=== PATIENT | female | born 1995 | race Asian ===

== ENCOUNTER 2022-08-10 15:27 | Emergency (ER) | payer MEDICAID ==
[~2022-08-10] VITALS: Ht 160 cm; Wt 63.0 kg
[2022-08-10 16:13] LABS: URINE HCG NEGATIVE (NEG)
[2022-08-10 16:22] LABS: CLARITY,URINE CLOUDY (Clear); COLOR,URINE YELLOW (Yellow); GLUCOSE, URINE NEGATIVE (Neg); KETONES,URINE NEGATIVE (Neg); LEUKOCYTE ESTERASE ,URINE NEGATIVE (Neg); NITRITES, URINE NEGATIVE (Neg); OCCULT BLOOD,URINE MODERATE (Neg); PROTEIN,URINE NEGATIVE (Neg); UA COLLECTION TYPE CLN CATCH MIDSTREAM; UROBILINOGEN,URINE 0.2 E.U/dL (0.2-1.0)
[2022-08-10 16:22] LABS: BASOPHILS % (AUTO) 0.6 % (0-1); EOSINOPHILS # (AUTO) 0.1 X10'3 (0-0.9); EOSINOPHILS % (AUTO) 1.6 % (0-6); HEMATOCRIT 39.4 % (35.0-45.0); HEMOGLOBIN 13.1 g/dl (12.0-16.0); LYMPHOCYTES # (AUTO) 2.2 X10'3 (1.1-4.8); MEAN CORPUSCULAR HEMOGLOBIN 29.9 PG (27.0-31.0); MEAN CORPUSCULAR HGB CONC 33.2 g/dL (33.0-36.5); MEAN CORPUSCULAR VOLUME 89.9 FL (78-98); MEAN PLATELET VOLUME 9.4 FL (7.4-10.4); MONOCYTES # (AUTO) 0.5 X10'3 (0-0.9); NEUTROPHILS # (AUTO) 4.8 X10'3 (1.8-7.7); NEUTROPHILS % (AUTO) 62.8 % (42-75); PLATELET COUNT 208 X10'3 (140-440); RED BLOOD COUNT 4.38 X10'6 (4.20-5.60); RED CELL DISTRIBUTION WIDTH 14.2 % (11.5-14.5); WHITE BLOOD COUNT 7.7 X10'3 (4.5-11.0)
[2022-08-10 16:35] LABS: ALANINE AMINOTRANSFERASE 30 U/L (12-78); ALBUMIN 3.9 G/DL (3.4-5.0); ALBUMIN/GLOBULIN RATIO 1.1 (1.1-1.5); ALKALINE PHOSPHATASE 112 IU/L (46-116); ANION GAP 11 (8-16); ASPARTATE AMINO TRANSFERASE 33 U/L (10-37); BILIRUBIN,TOTAL 0.3 MG/DL (0.1-1.0); BLOOD UREA NITROGEN 14 MG/DL (7-18); BUN/CREATININE RATIO 18.2 (10.0-20.0); CALCIUM 9.3 MG/DL (8.5-10.1); CHLORIDE 104 MMOL/L (99-107); CREATININE 0.77 MG/DL (0.40-0.90); GLUCOSE 101 MG/DL (70-104); LIPASE 164 U/L (73-393); POTASSIUM 4.1 MMOL/L (3.5-5.1); SODIUM 140 MMOL/L (135-145); TOTAL CARBON DIOXIDE 24.7 MMOL/L (24-32); TOTAL PROTEIN 7.6 G/DL (6.4-8.2); eGFR > 90 ML/MIN
[2022-08-10 16:35] LABS: BACTERIA,URINE 2+ /HPF (Neg); SQUAMOUS EPITHELIAL CELL,UR MANY /LPF (FEW); TRANSITIONAL EPI CELLS,URINE FEW /HPF
[2022-08-10] MEDS ORDERED: cefuroxime axetil 250mg tablet PO SCH (17:30)
[2022-08-10] MEDS ORDERED: cefuroxime axetil 250mg tablet PO ONE (17:30)
[2022-08-10] MEDS ORDERED: CEFU500T66 PO (17:39)
[2022-08-10 18:03] VITALS: BP 123/83
== END 2022-08-10 18:05 | disposition home or self-care (01) ==
LOC: ER 15:28
DX: N39.0 Urinary tract infection, site not specified (principal); Z79.899 Other long term (current) drug therapy
CPT/HCPCS: 36415; 80053; 81001; 81025; 83690; 85025; 87088; 99283

== ENCOUNTER 2022-08-21 12:30 | Emergency (ER) | payer MEDICAID ==
[~2022-08-21] VITALS: Ht 160 cm; Wt 60.0 kg
[~2022-08-21 12:30] MED LIST: CEFU500T66 PO
[2022-08-21 12:32] VITALS: BP 93/64
--- NOTE | 2022-08-21 14:14 | NUR ---
Lab reports they dont have urine on her. Gave pt water to get another sample.
[2022-08-21 14:57] LABS: CLARITY,URINE CLEAR (Clear); COLOR,URINE YELLOW (Yellow); GLUCOSE, URINE NEGATIVE (Neg); KETONES,URINE NEGATIVE (Neg); LEUKOCYTE ESTERASE ,URINE NEGATIVE (Neg); NITRITES, URINE NEGATIVE (Neg); OCCULT BLOOD,URINE SMALL (Neg); PROTEIN,URINE NEGATIVE (Neg); UROBILINOGEN,URINE 0.2 E.U/dL (0.2-1.0)
[2022-08-21 14:58] LABS: URINE HCG NEGATIVE (NEG)
[2022-08-21 15:13] LABS: UA COLLECTION TYPE CLN CATCH MIDSTREAM
[2022-08-21 15:15] LABS: RBC,URINE 0-2 /HPF (0-2); WBC,URINE 0-4 /HPF (0-4)
[2022-08-21 15:16] LABS: MUCUS STRANDS NONE SEEN /LPF (Neg); SQUAMOUS EPITHELIAL CELL,UR FEW /LPF (FEW)
[2022-08-21 15:17] LABS: BACTERIA,URINE FEW /HPF (Neg)
--- NOTE | 2022-08-21 15:43 | NUR ---
PT WITH ULTRASOUND NOW.
[2022-08-21] MEDS ORDERED: ketorolac trometh. 30mg/ml inj. IM ONE (15:55)
[2022-08-21] MEDS ORDERED: CELE-193 PO (16:13)
== END 2022-08-21 16:50 | disposition home or self-care (01) ==
LOC: ER 12:32
DX: M54.50 Low back pain, unspecified (principal); R11.0 Nausea
CPT/HCPCS: 76770; 81001; 81025; 96372; 99285; J1885

== ENCOUNTER 2024-01-11 10:48 | Emergency (ER) | payer BC, MEDICAID ==
[~2024-01-11] VITALS: Ht 160 cm; Wt 89.1 kg
[2024-01-11 10:54] VITALS: TEMP 98.6
[2024-01-11 11:18] VITALS: BP 118/76; PULSE 114; RESP 15; O2SAT 98
== END 2024-01-11 11:24 | disposition home or self-care (01) ==
LOC: ER 10:49
DX: O36.8130 Decreased fetal movements, third trimester, not applicable or unspecified (principal); Z3A.32 32 weeks gestation of pregnancy
CPT/HCPCS: 99284